=== PATIENT | female | born 1990 | race Caucasian/White ===

== ENCOUNTER → 2018-04-30 15:15 | Outpatient (CLI) | payer OTHER, SELFPAY ==
[2018-04-30 17:35] LABS: Chlamydia Trachomatis by PCR Negative (Negative); Neisserai gonorrhoeae by PCR Negative (Negative); Probe Check PASS; Sample Adequacy Control PASS; Specimen Processing Control PASS
[2018-05-01 01:34] LABS: Rapid Plasmin Reagin (RPR) NONREACTIVE (NONREACTIVE)
[2018-05-01 09:40] LABS: HIV - WCH Non-Reactive (Nonreactive)
[2018-05-04 11:32] LABS: HEPATITIS B SURFACE AG Negative (Negative); Hep C Antibodies <0.1 s/co ratio (0.0-0.9)
[2018-05-06 13:06] LABS: HPV Reflexed? NOT INDICATED
== END ==
PROVIDERS: Family Provider Family Medicine; PCP Family Medicine; Visit Provider Obstetrics & Gynecology
DX: Z12.4 Encounter for screening for malignant neoplasm of cervix (principal); Z11.3 Encounter for screening for infections with a predominantly sexual mode of transmission
CPT/HCPCS: 36415; 86592; 86703; 86803; 87340; 87491; 87591; 88175; G0145

== ENCOUNTER → 2021-06-20 16:27 | Outpatient (CLI) | payer BC, MEDICAID, SELFPAY ==
[2021-06-20 17:08] LABS: Absolute Lymphocyte Count 2.42 X10^3/uL (0.83-4.51); Absolute Neutrophil Count 6.9 X10^3/uL (2.0-7.7); Basophil# 0.03 X10^3/uL; Basophil% 0.3 % (0-1); Eosinophil# 0.18 X10^3/uL; Eosinophils% 1.7 % (0-5); Hematocrit 41.4 % (37-47); Hemoglobin 13.9 g/dL (12.0-15.0); Lymphocyte # 2.42 X10^3/ul (0.83-4.51); Lymphocyte % 23.2 % (19-41); Mean Corp Hgb Conc 33.6 g/dL (32-36); Mean Corpuscular Hgb 28.3 pg (27.0-32.0); Mean Corpuscular Volume 84.3 fL (81-99); Mean Platelet Vol. 9.7 fl (6.2-12.0); Monocyte# 0.76 X10^3/uL; Monocyte% 7.3 % (0-10); NRBC Flagged by Analyzer 0 % (0-5); Neutrophil # 6.94 X10^3/uL (2.7-7.7); Neutrophil % 66.7 % (47-70); Platelet Count 204 K/mm3 (150-450); RBC Distribution Width CV 13.6 % (11.6-14.6); RBC Distribution Width SD 42.3 fl (35.1-43.9); Red Blood Count 4.91 M/mm3 (4.2-5.4); White Blood Count 10.4 K/mm3 (4.4-11.0)
[2021-06-20 17:11] LABS: Color, Urine Yellow (Yellow); Glucose, Dipstick Normal (Normal); Ketone-Dipstick Negative (Negative); Leukocyte Esterase-Dipstick Negative /ul (Negative); Nitrite-Dipstick Negative (Negative); Occult Blood-Urine Negative /ul (Negative); Protein-Dipstick 15 mg/dl (Negative); Urine Bilirubin Dipstick Negative (Negative); Urine Clarity Cloudy (Clear); Urine Urobilinogen Normal (Normal)
[2021-06-20 17:31] LABS: Amphetamine Urine VISTA NEGATIVE (<1000 ng/mL); Barbiturate Urine VISTA NEGATIVE (< 200 ng/mL); Benzodiazepine Urine VISTA NEGATIVE (< 200 ng/mL); Cocaine Urine VISTA NEGATIVE (< 300 ng/mL); Ecstacy Urine VISTA NEGATIVE (< 500 ng/mL); Methadone Urine VISTA NEGATIVE (< 300 ng/mL); PCP Urine VISTA NEGATIVE (< 25 ng/mL); THC Urine VISTA NEGATIVE (< 50 ng/mL); Vista UDS pH Range 5
[2021-06-21 10:12] LABS: HIV - WCH Non-Reactive (Nonreactive); Hepatitis B Surface Antigen Non-Reactive (Nonreactive); Hepatitis C Antibody Non-Reactive (Nonreactive); Rubella IgG Reactive (Nonreactive); Syphilis Antibodies Non-reactive
[2021-06-22 22:07] LABS: Chlamydia By Nucleic Acid AMP Negative (Negative)
[2021-06-22 22:29] LABS: Gonococcus By Nucleic Acid AMP Negative (Negative)
== END ==
PROVIDERS: Visit Provider Obstetrics & Gynecology
DX: Z11.3 Encounter for screening for infections with a predominantly sexual mode of transmission (principal); Z34.81 Encounter for supervision of other normal pregnancy, first trimester
CPT/HCPCS: 36415; 80307; 81002; 85025; 86703; 86762; 86780; 86803; 87086; 87088; 87340; 87491; 87591

== ENCOUNTER → 2021-07-18 13:37 | Outpatient (CLI) | payer MEDICAID, SELFPAY ==
[2021-07-18 14:58] LABS: Glucose Challenge Gest 1H 50g 165 mg/dL (70-140)
== END ==
PROVIDERS: Visit Provider Obstetrics & Gynecology
DX: Z34.82 Encounter for supervision of other normal pregnancy, second trimester (principal)
CPT/HCPCS: 36415; 82950

== ENCOUNTER → 2021-08-22 06:48 | Outpatient (CLI) | payer MEDICAID, SELFPAY ==
[2021-08-22 08:02] LABS: Glucose GTT-Gestation. Fasting 109 mg/dL (<105)
[2021-08-22 09:39] LABS: Glucose GTT-Gestational 1 Hr 199 mg/dL (<190)
[2021-08-22 11:01] LABS: Glucose GTT-Gestational 2 Hr 205 mg/dL (<165)
[2021-08-22 11:02] LABS: Glucose GTT-Gestational 3 Hr 147 L (<145)
== END ==
PROVIDERS: Referring Provider Obstetrics & Gynecology; Visit Provider Obstetrics & Gynecology
DX: O24.912 Unspecified diabetes mellitus in pregnancy, second trimester (principal); Z3A.00 Weeks of gestation of pregnancy not specified
CPT/HCPCS: 36415; 82951; 82952

== ENCOUNTER 2021-09-24 12:21 | Outpatient (CLI) | payer MEDICAID, SELFPAY ==
[2021-09-24 12:37] LABS: Hematocrit 37.5 % (37-47); Hemoglobin 12.5 g/dL (12.0-15.0); Mean Corp Hgb Conc 33.3 g/dL (32-36); Mean Corpuscular Hgb 28.4 pg (27.0-32.0); Mean Corpuscular Volume 85.2 fL (81-99); Mean Platelet Vol. 10.1 fl (6.2-12.0); Platelet Count 157 K/mm3 (150-450); RBC Distribution Width CV 13.8 % (11.6-14.6); RBC Distribution Width SD 43.1 fl (35.1-43.9); White Blood Count 8.6 K/mm3 (4.4-11.0)
== END 2021-09-24 23:59 | disposition home or self-care (01) ==
LOC: WOBLAB 12:22
PROVIDERS: Visit Provider Obstetrics & Gynecology
DX: Z34.82 Encounter for supervision of other normal pregnancy, second trimester (principal)
CPT/HCPCS: 36415; 85027

== ENCOUNTER 2021-11-01 13:50 | Outpatient (CLI) | payer MEDICAID, SELFPAY ==
[2021-11-01 14:24] LABS: Fetal Fibronectin Negative
== END 2021-11-01 23:59 | disposition home or self-care (01) ==
PROVIDERS: Visit Provider Obstetrics & Gynecology
DX: O09.219 Supervision of pregnancy with history of pre-term labor, unspecified trimester (principal)
CPT/HCPCS: 82731

== ENCOUNTER 2021-11-23 16:07 | Outpatient (CLI) | payer MEDICAID, SELFPAY ==
[2021-11-23 16:47] LABS: Hemoglobin A1c 5.5 % (3.8-5.6)
[2021-11-23 17:50] LABS: AST(SGOT) 39 U/L (15-37); Alanine Aminotransfer ALT/SGPT 65 U/L (13-56); Alkaline Phosphatase 84 U/L (45-117); Globulin 4.1 g/dL (2.2-4.2); Protein, Total 7.1 g/dL (6.4-8.2)
[2021-11-26 08:30] LABS: Hepatitis C Antibody Non-Reactive (Nonreactive)
== END 2021-11-23 23:59 | disposition home or self-care (01) ==
LOC: WOBLAB 16:08
PROVIDERS: Visit Provider Obstetrics & Gynecology
DX: Z20.2 Contact with and (suspected) exposure to infections with a predominantly sexual mode of transmission (principal); O24.419 Gestational diabetes mellitus in pregnancy, unspecified control; R94.5 Abnormal results of liver function studies; Z3A.00 Weeks of gestation of pregnancy not specified
CPT/HCPCS: 36415; 80076; 83036; 86803

== ENCOUNTER 2021-12-15 19:20 | Inpatient (IN) | payer MEDICAID, SELFPAY ==
[2021-12-15] VITALS (7 sets, daily range): BP systolic 129–134; BP diastolic 83–87; PULSE 75–91; TEMP 36–36.2; O2SAT 95–97; BMI 38.7
[2021-12-15] MEDS: Betamethasone/Betamethasone 30 MG/5 ML Vial 12 MG IM (20:18)
[2021-12-15 21:15] LABS: Absolute Lymphocyte Count 1.88 X10^3/uL (0.83-4.51); Absolute Neutrophil Count 7.2 X10^3/uL (2.0-7.7); Basophil# 0.03 X10^3/uL; Basophil% 0.3 % (0-1); Hematocrit 38.6 % (37-47); Hemoglobin 13.3 g/dL (12.0-15.0); Lymphocyte # 1.88 X10^3/ul (0.83-4.51); Lymphocyte % 18.8 % (19-41); Mean Corp Hgb Conc 34.5 g/dL (32-36); Mean Corpuscular Hgb 29.4 pg (27.0-32.0); Mean Corpuscular Volume 85.4 fL (81-99); Mean Platelet Vol. 10.5 fl (6.2-12.0); Monocyte# 0.75 X10^3/uL; Monocyte% 7.5 % (0-10); NRBC Flagged by Analyzer 0 % (0-5); Neutrophil # 7.16 X10^3/uL (2.7-7.7); Neutrophil % 71.8 % (47-70); Platelet Count 186 K/mm3 (150-450); RBC Distribution Width CV 13.9 % (11.6-14.6); RBC Distribution Width SD 42.9 fl (35.1-43.9); Red Blood Count 4.52 M/mm3 (4.2-5.4)
[2021-12-15] MEDS: metFORMIN HCl 1,000 MG Tablet 1000 MG PO (22:59)
[2021-12-15 23:10] LABS: Bedside Glucose 84 mg/dL (74-106)
[2021-12-15 23:10] LABS: Bedside Glucose 185 mg/dL (74-106)
[2021-12-15] MEDS: Insulin Glargine-YFGN 100 UNIT/ML Pen 10 UNIT SC (23:19)
[2021-12-16] VITALS (24 sets, daily range): BP systolic 106–133; BP diastolic 31–89; PULSE 77–105; RESP 16–20; TEMP 36.1–37.7; O2SAT 94–97
[2021-12-16 06:16] LABS: Bedside Glucose 123 mg/dL (74-106)
[2021-12-16] MEDS: metFORMIN HCl 1,000 MG Tablet 1000 MG PO (08:55)
--- NOTE | 2021-12-16 10:25 | PCM.HP.BLA ---
History and Physical Date of Admission: 12/15/21 ACOG ANTEPARTUM RECORD - HISTORY AND PHYSICAL (12/16/2021) Name: ERIKA CLARK History of this : This is a 31 year old who presents at 35 wks + 6 (now 36 weeks gestation) days gestation last PM with increasing crouch lightening episodes the past 2-3 days. Also some occasional bright red spotting. She had a prior classical and lives in [place]. PNC also remarkable for polyhydramnios and GDM. OB Physician: Wendy Davenport MD Cecil's Physician: Crystal ...................................................................... : 1990 Age: 31 Address: [address] [place] [address] Phone: H) [phone] (O) [phone] Insurance Carrier: [facility] [id number] Emergency Contact: JEAN CLAUDE CLARK [phone] ...................................................................... Final ELADIO: 01/13/22 By Ultrasound: 9 weeks 3 days PARITY: (G-Total Pregnancies P-Fullterm,Premature,Induced AB,Spont AB, Ectopics, Multiple,Living) ELADIO CONFIRMATION: By LMP: 04/08/21 By First Ultrasound Exam: 07/18/14 Final ELADIO: 01/13/22 OB PROBLEM LIST: Allergic adhesive tape. 2nd trimester COVID19 infection Gestational Diabetes H/O depression/anxiety with past Zoloft use. EPDS today = 19. Declines medication. H/O skin cancer MaterniT 21 drawn today. Carrier screening declined. Prior CLASSICAL C Section Plan repeat C/S at 37 wks. Prior Vertical skin incision for C/S Plan repeat C/S through transverse skin incision Son has CP from Delivery after MVA , 27 week GA Spouse's family hx of hearing loss Tubal reversal x 2 ALLERGIES: Adhesive Tape Generalized rash Adhesive Tape Rash MEDICATIONS: Levemir FlexTouch U-100 Insulin 100 unit/mL (3 mL) subcutaneous pen Inject 10 u qhs metformin ER 1,000 mg 24 hr tablet,extended release 2 tabs po once daily metformin ER 750 mg tablet,extended release 24 hr 2 tabs po daily Metrogel Vaginal 0.75 % 1 applicator per vagina q hs for 5 days 28 mg iron-800 mcg tablet daily promethazine 25 mg tablet 1/2 to 1 po q 6 hrs prn nausea Vitamin D3 50 mcg (2,000 unit) capsule daily Zoloft 100 mg tablet 1 tab po daily SOCIAL HISTORY: Smoking - Never Alcohol Use - RARELY not while Diet - moderate, balanced diet and caffeine < 2 drinks per day Lifestyle - low stress lifestyle and Exercise - active Employer - [employer] Job Description - Illicit Drug Use - denies use of street drugs Sexual Activity - Residence - lives with Place of - [place], [place] Hours Worked - 40 hours per week Spouse-Sig Other Name - Jean Claude Clark Spouse-Sig Other Occupation - [employer], shipping/packing Spouse-Sig Other Phone No - [phone] Children Name(s) - Emily Timmons Landon, Hunter PRIOR DELIVERY HISTORY DEL DATE GEST LAB WT LB WT OZ TYPE ANES LABOR TX 06 Jun 14 37 0 6 3 C-Sec Spinal No 12 Jun 10 37 0 5 6 C-Sec Epidural No 18 Aug 11 38 2 6 11 C-Sec Epidural No Feb 27 27 0 2 6 C-Sec General No ANTEPARTUM FLOW CHART VISIT GE RTC FU F F TX U U DATE WK MD WKS HT PN HR M SS BP ED WT TX GL D EF ST __ ____ ___ __ __ ___ __ __ __ ___ __ __ __ ___ __ 25 Nov 35 + + 130/80 0 223 1+ - 22 Nov 35 SHM 1 36 V + + 120/82 sl 223 1+ ne 16 Nov 34 SHM 2 36 + + 134/78 sl 223 tr - 04 Nov 32 SHM 2 35 V + + 130/76 sl 222 tr - 10 Oct 29 SHM 1 29 ? + de 132/76 0 222 1+ - 0 0 -5 04 Oct 28 SHM 2 28 + + 130/82 0 223 1+ - 03 Oct 15 SHM 4 24 + + 126/74 1+ 221 tr - 08 Sep 10 SHM 4 20 + + 140/82 0 219 tr - 27 Jul 05 JMW 5 14 + US 124/84 0 221 tr - ANTEPARTUM NOTE(S): Dec 14 2021: Dec 11 2021: doing well Dec 05 2021: see blood sugars Nov 23 2021: see note Nov 01 2021: NST, see note Oct 26 2021: cramping, dark urine noted by pt Sep 24 2021: doing well Aug 29 2021: comp u/s today Jul 18 2021: Sono Today, NOB Today,, mat 21 per req w/1hr COMPREHENSIVE ANTEPARTUM NOTE(S): Dec 14 2021: Erkia is here for her NST at 35 w 5 d, for GDM and Polyhydramnios. She states that she is tired. She reports good FM. Occ. mild cramping felt. She denies spotting/LoF, but feels that she may be losing her mucous plug. No edema noted. Recent blood sugars: 12/12/21: FBS-98, 2 h pp dinner- 82, 12/13/2021: FBS - 83, 2 h pp dinner: 99, 12/14/2021: FBS - 97. Blood sugars reported to Dr. Laurie Davenport, n Dec 11 2021: Erika is 35w2d here for PNV. She is doing well. Good FM. Slight edema. Brought blood sugars today. No questions/concerns at this time. MR Dec 11 2021: BS reviewed, 62.5% at target and pt taking twice daily - always fasting. BPP 8/8, however polyhydramnios worsening, moderate, reviewed with pt uncontrolled glucose values and need for further treatment. Again reviewed risk for hypoglycemia, prolonged hospitalization - rx Levemir 10u qhs in interim. Reviewed importance of continuing taking blood sugars particularly fasting blood sugars. Dec 05 2021: Erika is here for visit. She has some blood sugars for today. She is encouraged to have Tdap vaccine today and reviewed reasoning. Reviewed FM, SROM, and labor. Blood sugars for Dr MAC review. LMT Dec 05 2021: Poor glucose surveillance. At this time likely hyperglycemia given polyhydramanios. BPP 8/8 however. Reviewed with pt increased risk for stillbirth, HYPOglycemia, electrolyte issues requiring extended hospitalization as well as developmental risks including limited feeding ability associated with planned 37w delivery and stressed need for glucose monitoring to limit / Nov 23 2021: Erika is here for visit. She relates she needs to talk to the doctor about not really being able to do blood sugars.She attempted 3 days of blood sugars in the middle of October. I encouraged her at the minimum if she could try to do a fasting and at least 1 PP. She relates she will try but will discuss further with Dr MAC. FM, PTL, and SROM reviewed. LMT Nov 23 2021: Erika relates she had a psych eval for a breakdown earlier this week. Her had a relapse for IVDU, left the home and her mother called the meat cooler. CPS has open case due to him relapsing approx 4 months ago also. Pt was overheard saying I wish I could and a naval aircrewman tactical helicopter who overheard her advised psych ED evaluation. She reports she was worked up over the prospect of losing her kids and overwhel Nov 01 2021: Erika is here today for a NST for dec FM, some cramping and pelvic pressure, and concerns about dark brown-yellow thick vaginal discharge starting yesterday and then again this morning. Erika is very concerned, and states that she is not feeling right, and that she is worried that the baby will be born too soon. She is a with an ELADIO of 01/13/2022, current GA is 29 w 4 d.. Erika rep Nov 01 2021: NST AGA, reactive. Scant brown tinged discharge today. Vaginitis NAAT obtained, FFN neg. Pt to observe. Bleeding, PTL, FM precautions reviewed. Oct 26 2021: Erika is here for visit. She is doing well overall but notes dark color to her urine and occ cramping. Urine dip is negative except 1+ protein, Sp gravity of 1.030, Ketones trace. LMT Oct 26 2021: US today AGA, EFW 1401g (65.5th%), ARMANI 16.8cm. PTL, FM precautions. Increase Metformin to 1500mg daily. Recommend dietary monitoring and log with blood sugar log. Sep 24 2021: Erika is here for PNV she is 24w1d. Positive movement states she has had some edema in her right foot/ankle. Blood sugars are copied. Otherwise doing well with no concerns or complaints BR Sep 24 2021: Fasting blood sugars elevated, nonadherence with 1h postprandials however, 2/3 also elevated. Reviewed with pt importance of glucose monitoring and euglycemia, expressed my concern for not only risk of risk including loss, hypoglycemia, neurologic effects, but risk for delayed FLM particularly given plan for repeat C/S at 36-37wga for prior hx classical C/S. I advise plan for C/S at 37+ wga Aug 29 2021: Erika is here for visit. She is doing well overall. Diagnosed with early GDM and has copy of blood sugars for review with Dr MAC. Reviewed and given handout with blood sugar instructions, diet. No need to keep track of FM yet. She is encouraged to start keeping track of any foods that elevate her sugars and avoid those. Discussed importance of adding daily exercise after meals that can Aug 29 2021: Anatomy scan today with limited cerebral, face, diaphragm, heart views, otherwise wnl. Repeat views in 4 weeks. Placenta anterior, reviewed risk for placenta accreta. Discussed GDM diagnosis, reviewed penitentiary increased risk for maternal DM, as well as risk for macrosomia, hypoglycemia with potential neurologic sequelae, electrolyte abnormalities, need for prolonged hospitalization - esta Aug 24 2021: TELEHEALTH DIABETIC TEACHING VISIT, 25 MINUTE DURATION. Erika has been diagnosed with GDM, current GA is 19 w 5 d. She has a glucometer with test strips and her mother, who has diabetes, has taught her how to check her blood sugars. She has been checking her blood sugars for a day or two now, and feels that it is going well and she states that she feels comfortable with this. Erika knows the Jul 18 2021: CBC, OGCT today and reporting feeling much better with more energy. Nausea better. Sono, NOB and PNV today. LIYA Jul 18 2021: Erika is here for her NOB visit at 14 w 3 d, ELADIO of 01/13/2022; she has 4 children at home, all delivered by . Past history updated. She had a tubal after her last C/S, and two tubal reversal procedures. Erika plans to deliver at [facility] by repeat C/S at 37 weeks, D/T surgical incision. She resides with her , Jean Claude, and the children. Both she and Jean Claude are getting ready t Jun 20 2021: Erika is here with her for missed menses appt. She relates LMP 04/08, EDC 01/13/22, 10 weeks 3 days. Makayla had tubal reversal x2 and a polypectomy. Conceived 2 days after her polypectomy in March. was not on any medications for this conception except Vitamin D. Prior Vit D level was 14 and she continues 2000 IU daily. Makayla had a very large work-up RGI. She had a normal pap with REVIEW OF SYSTEMS: GENERAL - Denies fever, or chills SKIN - Denies rash, new skin lesions, or change in moles EYES - Denies blurred vision, or change in visual acuity EARS - Denies ear pain, or difficulty hearing NOSE - Denies nasal congestion, discharge, or bleeding MOUTH - Denies sore throat, or difficulty swallowing NECK - Denies pain or swelling RESPIRATORY - Denies shortness of breath, cough, wheezing CARDIOVASCULAR - Denies palpitations, chest pain, orthopnea, PND, peripheral edema, syncope or claudication GASTROINTESTINAL - Denies nausea, vomiting, diarrhea, constipation, Denies abdominal pain, melena and or bright red blood GENITOURINARY - Denies dysuria, frequency of urination, urgency, or hesitancy MUSCULOSKELETAL - Denies joint or muscle pain, or back pain NEUROLOGICAL - Denies localized numbness, weakness, or tingling PSYCHIATRIC - Denies depression, anxiety, substance abuse or suicide attempts ENDOCRINE - Denies heat or cold intolerance, weight loss or gain, increasing thirst HEMATO-IMMUNOLOGIC - Denies easy bruising, bleeding, oral ulcerations or recurrent infections GENETICS SCREENING: Age 35+ years: No Thalassemia: No Neural Tube Defect: No Down Syndrome: No LINDA-SACHS: No Sickle Cell Disease: No Hemophilia: No Musc. Dystrophy: No Cystic Fibrosis: No-declines screening [facility] Chorea: No Mental Retardation: No Fragile X: No Other genetic: No Other defects: No SABs/still births: No Drugs since LMP: No Comments: son has CP from PTD post MVA INFECTION HISTORY: High risk AIDS: No High risk Hepatitis: No Exposed to TB: No Exposed to Herpes: No Rash/viral illness since LMP: No History of STD: Yes, HSV MENSTRUAL HISTORY: *Menses Regularity: IrregularFrequency: variableMenarche (Age Onset): 11* PAST SUMMARY: PARITY: 1. Total Pregnancies............ 5 2. Full Term Pregnancies........ 3 3. Premature.................... 1 4. Abortions - Induced.......... 0 5. Abortions - Spontaneous...... 1 6. Ectopics..................... 0 7. Multiple Births.............. 0 8. Living Children.............. 4 PAST #1: Date of :.................. 03/14/08 Gestation Weeks:................ 27 Length of labor(hours):......... 0 Sex:............................ M Weight-lbs:............... 2 Weight-oz:................ 6 Type of Delivery:............... C-Sect Type of Anesthesia:............. General Place of Delivery:.............. [place] Treatment of Labor?:.... No Comment: MVA- EMERGENCY C/S PAST #2: Date of :.................. 07/03/10 Gestation Weeks:................ 37 Length of labor(hours):......... 0 Sex:............................ F Weight-lbs:............... 5 Weight-oz:................ 6 Type of Delivery:............... C-Sect Type of Anesthesia:............. Epidural Place of Delivery:.............. [place] Treatment of Labor?:.... No Comment: PAST #3: Date of :.................. 05/09/11 Gestation Weeks:................ 38 Length of labor(hours):......... 2 Sex:............................ M Weight-lbs:............... 6 Weight-oz:................ 11 Type of Delivery:............... C-Sect Type of Anesthesia:............. Epidural Place of Delivery:.............. [place] Treatment of Labor?:.... No Comment: PAST #4: Date of :.................. 06/27/14 Gestation Weeks:................ 37 Length of labor(hours):......... 0 Sex:............................ M Weight-lbs:............... 6 Weight-oz:................ 3 Type of Delivery:............... C-Sect Type of Anesthesia:............. Spinal Place of Delivery:.............. [place] Treatment of Labor?:.... No Comment: PHYSICAL EXAMINATION General Appearence: 31 yo female in no acute distress Vital Signs: AF, VSS Heart: RRR without rubs or gallops Lungs: CTA x 2 Breasts: deferred Abdomen: gravid Pelvis: Cervix: Presentation: cephalic Station: Fetus: Size: AGA Movement: present Heart: present LAB TEST(S) ORDERED SINCE:04/18/21 09/01/2021 MISCELLANEOUS LAB PROCEDURE 08/22/2021 GESTATIONAL GTT 3HR 100G 07/24/2021 [id number] PLUS CORE 07/18/2021 GLUCOSE CHALLENGE GEST 1H 50G 06/22/2021 URINE CULTURE 06/22/2021 CHLAMYDIA/GC MARLENA APTIMA 06/21/2021 RUBELLA IGG 06/21/2021 L509.8000 06/21/2021 HIV - WCH 06/21/2021 HEPATITIS C ANTIBODY 06/21/2021 HEPATITIS B SURFACE ANTIGEN 06/20/2021 URINE DRUG SCREEN (VISTA) 06/20/2021 URINALYSIS, ROUTINE (DIPSTICK) 06/20/2021 T AND S-NO CHARGE W/PNP 06/20/2021 CBC W/DIFF, AUTOMATED 12/16/2021 BEDSIDE GLUCOSE 12/15/2021 TYPE AND SCREEN 12/15/2021 COVID 19 AG RAPID (RN COLLECT) 12/15/2021 CBC W/DIFF, AUTOMATED 12/15/2021 BEDSIDE GLUCOSE 11/26/2021 HEPATITIS C ANTIBODY 11/23/2021 LIVER PROFILE 11/23/2021 HEMOGLOBIN A1C 11/16/2021 MISCELLANEOUS LAB PROCEDURE 2 11/16/2021 MISCELLANEOUS LAB PROCEDURE 11/01/2021 FIBRONECTIN 09/24/2021 CBC-COMPLETE BLOOD CNT NO DIFF == ==== Order Observation Description Value Ref_Range A* Site == ==== BEDSIDE GLUCOSE NOTE FABIAN BEDSIDE GLUCOSE FINGERSTICK GLU 123 mg/dL 74-106 H POCL MANAGEMENT OF PATIENT CARE PER NURSING PROTOCOL BEDSIDE GLUCOSE NOTE FABIAN BEDSIDE GLUCOSE FINGERSTICK GLU 185 mg/dL 74-106 H POCL MANAGEMENT OF PATIENT CARE PER NURSING PROTOCOL COVID 19 AG RAP NOTE FABIAN S [facility]~[address] [place], [address]~ TYPE AND SCRE AB SCREEN GEL NEGATIVE ML CBC W/DIFF, AUT NOTE FABIAN CBC W/DIFF, AUT WBC 10.0 K/mm3 4.4-11.0 ML CBC W/DIFF, AUT RBC 4.52 M/mm3 4.2-5.4 ML CBC W/DIFF, AUT HGB 13.3 g/dL 12.0-15.0 ML CBC W/DIFF, AUT HCT 38.6 37-47 ML CBC W/DIFF, AUT MCV 85.4 fL 81-99 ML CBC W/DIFF, AUT MCH 29.4 pg 27.0-32.0 ML CBC W/DIFF, AUT MCHC 34.5 g/dL 32-36 ML CBC W/DIFF, AUT RDW CV 13.9 11.6-14.6 ML CBC W/DIFF, AUT RDW SD 42.9 fl 35.1-43.9 ML CBC W/DIFF, AUT PLT 186 K/mm3 150-450 ML CBC W/DIFF, AUT MPV 10.5 fl 6.2-12.0 ML CBC W/DIFF, AUT NEUT% 71.8 47-70 H ML CBC W/DIFF, AUT LY% 18.8 19-41 L ML CBC W/DIFF, AUT MONO% 7.5 0-10 ML CBC W/DIFF, AUT EO% 1.0 0-5 ML CBC W/DIFF, AUT BASO% 0.3 0-1 ML CBC W/DIFF, AUT IG% 0.600 0.0-0.9 ML IG% - Immature Granulocytes (promyelocytes, myelocytes and metamyelocytes) > 1% indicates that a LEFT SHIFT is Present. CBC W/DIFF, AUT ABSOLUTE NEUT 7.2 X10 3/uL 2.0-7.7 ML CBC W/DIFF, AUT ABSOLUTE LYMPH 1.88 X10 3/uL 0.83-4.51 ML CBC W/DIFF, AUT NUCLEATED RBC 0 0-5 ML BEDSIDE GLUCOSE NOTE FABIAN BEDSIDE GLUCOSE FINGERSTICK GLU 84 mg/dL 74-106 POCL MANAGEMENT OF PATIENT CARE PER NURSING PROTOCOL HEPATITIS C ANT NOTE FABIAN HEPATITIS C ANT HEPATITIS C AB Non-Reactive Nonreactive ML Non Reactive: < 0.8 Equivocal: >/= 0.8 to < 1.0 Reactive: >/= 1.0 The CDC recommends that a reactive/equivocal HCV antibody result be followed up by the HCV Nucleic Acid Amplification test ([id number]) LIVER PROFILE NOTE FABIAN LIVER PROFILE T PROT 7.1 g/dL 6.4-8.2 ML LIVER PROFILE ALB 3.0 g/dL 3.2-5.0 L ML LIVER PROFILE GLOB 4.1 g/dL 2.2-4.2 ML LIVER PROFILE AST 39 U/L 15-37 H ML LIVER PROFILE ALK P 84 U/L 45-117 ML LIVER PROFILE ALT 65 U/L 13-56 H ML LIVER PROFILE T BILI 0.40 mg/dL 0.20-1.00 ML For patients on eltrombopag therapy, use of Dimension [place] TBIL is not recommended. LIVER PROFILE D BILI 0.10 mg/dL 0.00-0.30 ML HEMOGLOBIN A1C NOTE FABIAN HEMOGLOBIN A1C HGB A1C 5.5 3.8-5.6 ML Normal < 5.7 % Prediabetic 5.7 - 6.4 % Diabetic >or= 6.5 % Please note range changes. FIBRONECT NOTE FABIAN FIBRONECT FFIBRONECTIN Negative ML MISCELLANEOUS L NOTE FABIAN MISCELLANEOUS L MISC LAB TEST 2 ML TEST RESULT LIMITS Genital Mycoplasmas MARLENA, Swab Mycoplasma genitalium MARLENA B, Negative Negative Mycoplasma hominis MARLENA B, Negative Negative Ureaplasma spp MARLENA B, Negative Negative TESTING PERFORMED AT [facility]. ORIGINAL REPORT ON FILE IN LAB CONTAINS ADDITIONAL TEST SITE INFORMATION. MISCELLANEOUS L NOTE FABIAN MISCELLANEOUS L MISC LAB TEST ML TEST RESULT LIMITS NuSwab Vaginitis Plus (VG+) Bacterial Vaginosis, MARLENA Atopobium vaginae Moderate - 1 Score BVAB 2 Low - 0 Score Megasphaera 1 Low - 0 Score Total Score, add three scores Calculate total score by adding the 3 individual bacterial vaginosis (BV) marker scores together. Total score is interpreted as follows: Total score 0-1: Indicates the absence of BV. Total score 2: Indeterminate for BV. Additional clinical data should be evaluated to establish a diagnosis. Total score 3-6: Indicates the presence of BV. This test was developed and its performance characteristics determined by [employer]. It has not been cleared or approved by the Food and Drug Administration. Jenelle albicans, MARLENA A, Negative Negative Jenelle glabrata, MARLENA A, Negative Negative Trich vag by MARLENA Negative Negative Chlamydia trachomatis, MARLENA Negative Negative Neisseria gonorrhoeae, MARLENA Negative Negative TESTING PERFORMED AT [facility]. ORIGINAL REPORT ON FILE IN LAB CONTAINS ADDITIONAL TEST SITE INFORMATION. CBC-COMPLETE BL NOTE FABIAN CBC-COMPLETE BL WBC 8.6 K/mm3 4.4-11.0 ML CBC-COMPLETE BL RBC 4.40 M/mm3 4.2-5.4 ML CBC-COMPLETE BL HGB 12.5 g/dL 12.0-15.0 ML CBC-COMPLETE BL HCT 37.5 37-47 ML CBC-COMPLETE BL MCV 85.2 fL 81-99 ML CBC-COMPLETE BL MCH 28.4 pg 27.0-32.0 ML CBC-COMPLETE BL MCHC 33.3 g/dL 32-36 ML CBC-COMPLETE BL RDW CV 13.8 11.6-14.6 ML CBC-COMPLETE BL RDW SD 43.1 fl 35.1-43.9 ML CBC-COMPLETE BL PLT 157 K/mm3 150-450 ML CBC-COMPLETE BL MPV 10.1 fl 6.2-12.0 ML GESTATIONAL GTT NOTE AFBIAN GESTATIONAL GTT 3HR GTT- GEST. MG/DL H ML FASTING 109 H Col: 08/22/21 0704 GLUCOSE TOLERANCE TEST FOR Reference Interval GESTATIONAL DIABETES Fasting <105 mg/dL 1 hour <190 mg/dl 2 hour <165 mg/dl 3 hour <145 mg/dl 1 HR GLU 199 H Col: 08/22/21 0810 2 HR GLU 205 H Col: 08/22/21 0913 3 HR GLU 147 H Col: 08/22/21 1014 MISCELLANEOUS L NOTE FABIAN MISCELLANEOUS L MISC LAB TEST ML Sent directly to testing facility per ordering physician. GLUCOSE CHALLEN NOTE FABIAN GLUCOSE CHALLEN GLU GEST 50G 1H 165 mg/dL 70-140 H ML [id number] PLUS GESTATION Vargas LC_SEQCA [id number] PLUS FRACTION 4% LC_SEQCA [id number] PLUS GESTATIONAL AGE > OR = 9 Yes LC_SEQCA [id number] PLUS TEST RESULT Negative LC_SEQCA [id number] PLUS DIRECTIONAL DRILL OPERATOR COMMENTS LC_SEQCA This specimen showed an expected representation of chromosome 21, 18 and 13 material. Clinical correlation is suggested. [id number] PLUS APPROVED BY LC_SEQCA Alejandro Kee MD, PhD, Director, [employer] [id number] PLUS TRISOMY 21 (DOWN SYNDROM Negative LC_SEQCA [id number] PLUS TRISOMY 18 (PEPPER SYND Negative LC_SEQCA [id number] PLUS TRISOMY 13 (PATAU SYNDRO Negative LC_SEQCA [id number] PLUS SEX LC_SEQCA Consistent with Female [id number] PLUS NEGATIVE PREDICTIVE VALU Note LC_SEQCA The Negative Predictive Value (NPV) for trisomy 21, 18, and 13 is greater than 99%. The NPV for SCA and ESS cannot be calculated as SCA and ESS are only reported when an abnormality is detected. [id number] PLUS POSITIVE PREDICTIVE VALU N/A LC_SEQCA [id number] PLUS ABOUT THE TEST LC_SEQCA The MaterniT(R) 21 PLUS laboratory-developed test (LDT) analyzes circulating cell-free DNA from a maternal blood sample. The test is indicated for use in women with increased risk for chromosomal aneuploidy. Validation data on twin pregnancies is limited and the ability of this test to detect aneuploidy in a triplet has not yet been validated. [id number] PLUS TEST METHOD LC_SEQCA Circulating cell-free DNA was purified from the plasma component of maternal blood. The extracted DNA was then converted into a genomic DNA library for aneuploidy analysis of chromosomes 21, 18, and 13 via next generation sequencing.[1] Optional findings based on the test order include sex chromosome aneuploidy (SCA)[2], and enhanced sequencing series (ESS)[3], which will only be reported on as an additional finding when an abnormality is detected. SCA testing includes information on X and Y representation, while ESS testing includes deletions in selected regions (22q, 15q, 11q, 8q, 5p, 4p, 1p) and trisomy of chromosomes 16 and 22. [id number] PLUS PERFORMANCE LC_SEQCA The performance characteristics of the MaterniT(R) 21 PLUS laboratory-developed test (LDT) have been determined in a clinical validation study with women at increased risk for chromosomal aneuploidy.[1],[2],[3],[4] [id number] PLUS PERFORMANCE CHARACTERIST Note LC_SEQCA ! Y-Chromosome ( Sex) ! Accuracy: 99.4% ! ! ! ! Region (associated syndrome) ! Est. Sens# ! Est. Spec ! ! ! ! Trisomy 21 (Down Syndrome) ! 99.1% ! 99.9% ! ! ! ! Trisomy 18 (Pepper Syndrome) ! >99.9% ! 99.6% ! ! ! ! Trisomy 13 (Patau Syndrome) ! 91.7% ! 99.7% ! ! ! ! Sex Chromosome Aneuploidies## ! 96.2% ! 99.7% ! ! ! * As reported in [facility] database [email or web address] [[email or web address] [email or web address] [email or web address]/search/ ] # Estimated Sensitivity. Sensitivity estimated across the observed size distribution of each syndrome [per [facility] database nstd37] and across the range of fractions observed in routine clinical NIPT. Actual sensitivity can also be influenced by other factors such as the size of the event, total sequence counts, amplification bias, or sequence bias. ## Vargas gestation only. [id number] PLUS LIMITATIONS OF THE TEST LC_SEQCA While the results of these tests are highly accurate, discordant results, including inaccurate sex prediction, may occur due to placental, maternal, or mosaicism or neoplasm; vanishing twin; prior maternal organ transplant; or other causes. Sex chromosomal aneuploidies are not reportable for known multiple gestations. These tests are screening tests and not diagnostic; they do not replace the accuracy and precision of diagnosis with CVS or amniocentesis. A patient with a positive test result should be referred for genetic counseling and offered invasive diagnosis for confirmation of test results.[5] A negative result does not ensure an unaffected nor does it exclude the possibility of other chromosomal abnormalities or defects which are not a part of these tests. An uninformative result may be reported, the causes of which may include, but are not limited to, insufficient sequencing coverage, noise or artifacts in the region, amplification or sequencing bias, or insufficient fraction. These tests are not intended to identify pregnancies at risk for neural tube defects or ventral wall defects. Testing for whole chromosome abnormalities (including sex chromosomes) and for subchromosomal abnormalities could lead to the potential discovery of both and maternal genomic abnormalities that could have major, minor, or no, clinical significance. Evaluating the significance of a positive or a non-reportable result may involve both invasive testing and additional studies on the mother. Such investigations may lead to a diagnosis of maternal chromosomal or subchromosomal abnormalities, which on occasion may be associated with benign or malignant maternal neoplasms. These tests may not accurately identify triploidy, balanced rearrangements, or the precise location of subchromosomal duplications or deletions; these may be detected by diagnosis with CVS or amniocentesis. The ability to report results may be impacted by maternal BMI, maternal weight, maternal systemic lupus erythematosus (SLE) and/or by certain pharmaceutical agents such as low molecular weight heparin (for example: Lovenox(R), Xaparin(R), Clexane(R) and Fragmin(R)). The results of this testing, including the benefits and limitations, should be discussed with a qualified healthcare provider. management decisions, including termination of the , should not be based on the results of these tests alone. The healthcare provider is responsible for the use of this information in the management of their patient. [id number] PLUS NOTE LC_SEQCA This test was developed and its performance characteristics determined by [facility]. It has not been cleared or approved by the Food and Drug Administration. This laboratory is certified under the Clinical Laboratory Improvement Amendments (CLIA) as qualified to perform high complexity clinical laboratory testing and accredited by the [employer] (CAP). If there is future clinical need for adding MaterniT GENOME testing, this specimen will be available until term. [facility] samples will not be retained beyond 60 days. [facility] patients will have to send a new sample for re-sequencing ([facility] Test Code: 615247). [id number] PLUS REFERENCES LC_SEQCA 1. Yvan YING, et al. Serenity Med. 2012;14(3):296-305. 2. Jordan KAN, et al. Prenat Diag. 2013;33(6):591-597. 3. Drew C, et al. Clin Chem. 2015 Apr;61(4):608-616. 4. Yvan YING, et al. Serenity Med. 2011;13(11):913-920. 5. ACOG/SMFM Joint Committee Opinion No. 545, Aug 2012. [id number] PLUS PDF . LC_SEQCA CHLAMYDIA/GC NA NOTE FABIAN CHLAMYDIA/GC NA CHLAMY,NUC ACID Negative Negative LCI CHLAMYDIA/GC NA GC BY NUC ACID Negative Negative LCI Performed at: =[address] SouthAlie [id number] Pump Installer: Lana Street MD, Phone: [phone] URINE CULTURE NOTE FABIAN HEPATITIS C ANT NOTE FABIAN HEPATITIS C ANT HEPATITIS C AB Non-Reactive Nonreactive ML Non Reactive: < 0.8 Equivocal: >/= 0.8 to < 1.0 Reactive: >/= 1.0 The CDC recommends that a reactive/equivocal HCV antibody result be followed up by the HCV Nucleic Acid Amplification test (745029) HEPATITIS B RAKESH NOTE FABIAN HEPATITIS B RAKESH HEP B SURF AG Non-Reactive Nonreactive ML HIV - [facility] NOTE FABIAN HIV - [facility] HIV Non-Reactive Nonreactive ML L509.8000 NOTE FABIAN L509.8000 SYPHILIS ABS Non-reactive ML RUBELLA IGG NOTE FABIAN RUBELLA IGG RUBELLA IGG Reactive Nonreactive ML Antibody Results Interpretation of Immune Status Non Reactive Presumed Non-Immune Equivocal Equivocal Reactive Presumed Immune PN N [facility]~[address] [place], [address]~ T AND AB SCREEN GEL NEGATIVE ML URINE DRUG SCRE NOTE FABIAN URINE DRUG SCRE VISTA UDS PH 5 ML URINE DRUG SCRE AMPHETAMINES NEGATIVE <1000 ng/mL ML URINE DRUG SCRE BARBITIURATES NEGATIVE < 200 ng/mL ML URINE DRUG SCRE BENZODIAZIPINE NEGATIVE < 200 ng/mL ML URINE DRUG SCRE COCAINE NEGATIVE < 300 ng/mL ML URINE DRUG SCRE ECSTACY NEGATIVE < 500 ng/mL ML URINE DRUG SCRE METHADONE NEGATIVE < 300 ng/mL ML URINE DRUG SCRE OPIATES NEGATIVE < 300 ng/mL ML URINE DRUG SCRE PCP NEGATIVE < 25 ng/mL ML URINE DRUG SCRE THC NEGATIVE < 50 ng/mL ML URINALYSIS, ROU NOTE FABIAN URINALYSIS, ROU COLOR Yellow Yellow ML URINALYSIS, ROU URINE CLARITY Cloudy Clear ML URINALYSIS, ROU GLUCOSE, UR Normal mg/dl Normal ML URINALYSIS, ROU BILIRUBIN URINE Negative mg/dL Negative ML URINALYSIS, ROU KETONE UR Negative mg/dl Negative ML URINALYSIS, ROU SP.GR. DIPSTX 1.030 1.002-1.030 ML URINALYSIS, ROU PH UR 5.0 5.0 - 8.0 ML URINALYSIS, ROU PROT DIPSTX 15 mg/dl Negative A ML URINALYSIS, ROU UROBILI Normal mg/dl Normal ML URINALYSIS, ROU NITRITE Negative Negative ML URINALYSIS, ROU OCCULT BLOOD-UR Negative /ul Negative ML URINALYSIS, ROU LEUK ESTERASE Negative /ul Negative ML CBC W/DIFF, AUT NOTE FABIAN CBC W/DIFF, AUT WBC 10.4 K/mm3 4.4-11.0 ML CBC W/DIFF, AUT RBC 4.91 M/mm3 4.2-5.4 ML CBC W/DIFF, AUT HGB 13.9 g/dL 12.0-15.0 ML CBC W/DIFF, AUT HCT 41.4 37-47 ML CBC W/DIFF, AUT MCV 84.3 fL 81-99 ML CBC W/DIFF, AUT MCH 28.3 pg 27.0-32.0 ML CBC W/DIFF, AUT MCHC 33.6 g/dL 32-36 ML CBC W/DIFF, AUT RDW CV 13.6 11.6-14.6 ML CBC W/DIFF, AUT RDW SD 42.3 fl 35.1-43.9 ML CBC W/DIFF, AUT PLT 204 K/mm3 150-450 ML CBC W/DIFF, AUT MPV 9.7 fl 6.2-12.0 ML CBC W/DIFF, AUT NEUT% 66.7 47-70 ML CBC W/DIFF, AUT LY% 23.2 19-41 ML CBC W/DIFF, AUT MONO% 7.3 0-10 ML CBC W/DIFF, AUT EO% 1.7 0-5 ML CBC W/DIFF, AUT BASO% 0.3 0-1 ML CBC W/DIFF, AUT IG% 0.800 0.0-0.9 ML IG% - Immature Granulocytes (promyelocytes, myelocytes and metamyelocytes) > 1% indicates that a LEFT SHIFT is Present. CBC W/DIFF, AUT ABSOLUTE NEUT 6.9 X10 3/uL 2.0-7.7 ML CBC W/DIFF, AUT ABSOLUTE LYMPH 2.42 X10 3/uL 0.83-4.51 ML CBC W/DIFF, AUT NUCLEATED RBC 0 0-5 ML *Negative results from patients with symptom onset beyond five days should be treated as presumptive and confirmed by a molecular assay if clinically necessary. Negative results should not be used as the sole basis for treatment or for patient management. SARS-CoV-2 Ag Resp Ql IA.rapid SARS-CoV-2 Ag Resp Ql IA.rapid SARS-CoV-2 Ag Resp Ql IA.rapid * This test has not been FDA cleared or approved; the test has been authorized by FDA under an Emergency Use Authorization (EAU) for use by laboratories certified under CLIA that meet the requirements to perform moderate, high, or waived complexity tests. SARS-CoV-2 Ag Resp Ql IA.rapid Normal Reference Range: Negative SARS-CoV-2 (COVID 19) Negative RAPID METHOD Quidel Emilia Analyzer MIGUEL ÁNGEL A POSITIVE Presumptive Lactobacillus sp. [place] Count 80,000-100,000 A POSITIVE == ==== Impression /Plan: 35 wks + 6 days intrauterine with hx of classical now with intermittent lower tearing abdominal pain. Reactive NST. Minimal bleeding now. Steroids for 24 hours with continuous monitoring then will proceed with .
[2021-12-16] MEDS: Betamethasone/Betamethasone 30 MG/5 ML Vial 12 MG IM (11:02)
[2021-12-16 11:16] LABS: Bedside Glucose 136 mg/dL (74-106)
[2021-12-16] MEDS: Lactated Ringers 1,000 ML 150 ML IV (13:54)
[2021-12-16] MEDS: Sodium Citrate/Citric Acid 30 ML UDC PO (16:52)
[2021-12-16] MEDS: Acetaminophen 500 MG Tablet 1000 MG PO ×2 (16:52→22:52)
[2021-12-16 17:00] LABS: Bedside Glucose 125 mg/dL (74-106)
--- NOTE | 2021-12-16 17:57 | OP.PCM_ITS ---
Details Operative Information Date of Procedure: 12/16/21 Pre-Operative Diagnosis: Prior Classical Section, Abdominal Pain Post-Operative Diagnosis: Prior Classical Section, Abdominal Pain Classification: Scheduled Procedure Type: low transverse hot top liner #1: Kenyatta Liu Type of Anesthesia: Spinal (With Duramorph) Anesthesiologist: Dao Javed Antibiotic Given: Ancef 2 grams IV x1 Estimated Blood Loss: 500 cc Fluids Replaced: Crystalloid Findings Description of Procedure: Surgeon: Lit Javed MD, FACOG Procedure: Repeat Low Transverse Cervical Caesarean Section Findings: Viable female infant with Apgars of 7/9 in occiput anterior presentation with clear amniotic fluid and normal three-vessel placenta. Indication: This is a 31-year-old who presents for her fourth at 36 weeks gestation. care has been remarkable for a prior classical C- section. Presented in possible early labor last evening with bleeding and lower abdominal pain. Patient was monitored and given steroids for 24 hours. care also remarkable for polyhydramnios and gestational diabetes. The patient has been counseled regarding the risk and indications of this procedure including the possibility of bleeding infection and injury to surrounding structures such as bowel bladder. All questions were answered. Procedure: Patient was taken to the operating room where after spinal anesthesia was placed, the patient was prepped and draped in usual sterile fashion and a Roman catheter was placed. The abdomen was entered through the patient's prior Pfannenstiel incision and peritoneum was entered bluntly. After developing a bladder flap on the lower uterine segment a low transverse incision was made on the uterus and head was delivered onto the operative field with the assistance of Kiwi vacuum suction due to the head being low in the pelvis; the nose mouth and oropharynx were bulb suctioned. Subsequently a viable female infant was born with Apgars of 7/9. The was noted to cry move all extremities vigorously on the operative field. The umbilical cord was doubly clamped and ligated and infant handed to the nursery personnel who were present for the delivery. Placenta was delivered and noted to be 3 vessels and normal. Uterus was exteriorized and remaining placental tissue was removed. The uterus was then closed in 2 layers first with running locked 0 Vicryl suture followed by a second imbricating layer with 0 Vicryl suture. 0 Vicryl suture was then used in a horizontal mattress interrupted fashion to affect final hemostasis of the uterine incision line. Adhesions were removed with cautery from the left fallopian tube. Normal fallopian tubes and ovaries were visualized and the uterus was returned to the pelvis. Hemostasis was noted and rectus abdominis muscles were reapproximated in the midline with interrupted Number 0 Vicryl suture in a horizontal mattress fashion. Fascia was closed with running Number 1 PDS Strata fix suture. Subcutaneous tissue was irrigated with copious amounts of saline solution and then closed with running 3-0 Vicryl suture in 2 layers. Skin was closed with 4-0 monocryl suture in a running subcuticular fashion. Steri strips and a Mepilex dressing were placed across the incision. The patient tolerated the procedure well and was taken to the recovery room in satisfactory condition. Sponge, needle, and instrument counts were all reportedly correct. EBL was 500 cc. Ancef 2 gms IV was given prior to the procedure. Presentation: Positive for Vertex Amniotic Fluid Description: Clear Placental Delivery Description: Spontaneous Placenta Disposition: [facility] Specimen(s) Sent to Pathology: None Cord Vessel Description: 3 Vessels Cord Entanglement: None Complications Risks of Surgery Discussed w/Patient: Bleeding, Infection and Injury to surrounding structure(s) including bowel and bladder Complications: None
[2021-12-16] MEDS: Cefazolin 2 GM in 0.9% Normal Saline 100 ML IV (18:10)
[2021-12-16] MEDS: Oxytocin 30 units/NS 500 ml 30 UNITS/500 ML IV.SOLN 167 UNITS IV (19:45)
[2021-12-16 20:31] LABS: Bedside Glucose 135 mg/dL (74-106)
[2021-12-16] MEDS: Ketorolac 30 MG/ML Syringe IV (21:05)
[2021-12-16] MEDS: DiphenhydrAMINE 25 MG Capsule PO (21:06)
[2021-12-16] MEDS: Lactated Ringers 1,000 ML 100 ML IV (22:52)
[2021-12-17] VITALS (10 sets, daily range): BP systolic 100–122; BP diastolic 48–82; PULSE 71–93; RESP 14–24; TEMP 36.2–37.2; O2SAT 92–100
[2021-12-17] MEDS: 0.9% Saline Lock 10 ML Syringe IV (02:01)
[2021-12-17] MEDS: Ketorolac 30 MG/ML Syringe IV ×2 (02:06→08:09)
[2021-12-17] MEDS: Cefazolin 1 GM/50 ML BAG IV ×2 (02:08→10:22)
[2021-12-17] MEDS: Acetaminophen 500 MG Tablet 1000 MG PO ×3 (05:35→18:28)
[2021-12-17] MEDS: Enoxaparin 40 MG/0.4 ML Syringe SC (05:36)
[2021-12-17 06:01] LABS: Bedside Glucose 131 mg/dL (74-106)
[2021-12-17 06:49] LABS: Hematocrit 33.8 % (37-47); Hemoglobin 11.2 g/dL (12.0-15.0); Mean Corp Hgb Conc 33.1 g/dL (32-36); Mean Corpuscular Hgb 28.6 pg (27.0-32.0); Mean Corpuscular Volume 86.2 fL (81-99); Mean Platelet Vol. 10.5 fl (6.2-12.0); Platelet Count 148 K/mm3 (150-450); RBC Distribution Width SD 44.3 fl (35.1-43.9); Red Blood Count 3.92 M/mm3 (4.2-5.4); White Blood Count 13.3 K/mm3 (4.4-11.0)
--- NOTE | 2021-12-17 07:20 | NURSING ---
bedside report given to Ana Lilia Francis RN and Huber Gil RN who are assuming care of pt at this time
[2021-12-17] MEDS: Lactated Ringers 1,000 ML 100 ML IV ×2 (07:53→07:57)
--- NOTE | 2021-12-17 08:28 | PCM.PN.OB ---
Subjective Subjective Postop day 1 status post repeat section. Lochia minimal. Pain controlled. Objective Data Objective Data Vital Signs: Vital Signs Temp Pulse Resp BP Pulse Ox 98.1 F 77 14 104/56 L 94 12/17/21 07:47 12/17/21 07:47 12/17/21 07:47 12/17/21 07:47 12/17/21 07:47 Oxygen Flow Rate (L/min) 2 Oxygen Delivery Method Room Air Weight: 102.4 kg Body Mass Index (BMI) 38.7 Intake & Output: Intake and Output for Last 24 Hours 12/15/21 12/16/21 12/17/21 23:59 23:59 23:59 Intake Total 1617.5 / 1617.5 925.01 / 925.01 Output Total 150 / 150 180 / 180 Balance 1467.5 / 1467.5 745.01 / 745.01 Lab / Micro Data Result Diagrams: 12/17/21 06:27 Labs: Laboratory Results - last 24 hr 12/16/21 11:06: POC Glucose 136 H 12/16/21 16:55: POC Glucose 125 H 12/16/21 20:08: POC Glucose 135 H 12/17/21 05:42: POC Glucose 131 H 12/17/21 06:27: WBC 13.3 H, RBC 3.92 L, Hgb 11.2 L, Hct 33.8 L, MCV 86.2, MCH 28.6, MCHC 33.1, RDW Std Deviation 44.3 H, RDW Coeff of Kai 14.0, Plt Count 148 L, MPV 10.5 Micro: Microbiology 12/15/21 21:14 Nasal Secretion SARS-CoV-2 Antigen (Rapid) - Final Physical Exam Const alert, oriented x3 and no apparent distress HEENT normocephalic Head and Scalp: atraumatic Neck full ROM Resp normal respiratory effort Cardio regular rate GI normal to inspection, nondistended, normoactive bowel sounds GI Narrative: Uterus 2 cm below umbilicus. Dressing clean and dry. Skin erythema in area where ioban was. Back/Spine normal ROM Extremity normal to inspection Extremity Narrative: Minimal pedal edema Neuro no focal motor deficits and no sensory deficits noted Psych mental status grossly normal and affect normal Assessment & Plan (1) Delivery by section: PLAN: Postop day 1 status post repeat section. On oxygen overnight, resolved. Encourage ambulation and incentive spirometry. Okay to discharge tonight as long as she no longer requires oxygen. (2) Other acute postprocedural pain:
--- NOTE | 2021-12-17 08:31 | PCM.DC ---
Documented by User: Dr. Liudmila Dangelo DO 12/17/21 08:33 Discharge Instructions Diet Discharge Diet: No restrictions Activity Discharge Activity: Return to Normal Activity and May Shower May resume sexual activity in: 4-6 weeks Weight Bearing Status: Weight bearing as tolerated Lifting Restrictions: No greater than 25 pounds Dressing / Incision Call your doctor if your incision/area has: Continuous Slow Oozing, Sudden Increased Bleeding, Increased Pain/ Swelling, Increased Redness, Foul Smelling Discharge and Swelling at the incision site Call your doctor if you observe: Fever of 101 or Higher, Change in Color, Inability to urinate, Using more than 1 pad per hour, Shortness of breath, Dizziness, Swelling in the ankles, Chest pain and Calf discomfort Remove Dressing in: 1 week Cleanse incision/area with: Soap & Water Follow Up Care Please Follow Up With: Lit Javed MD When: 2-week post operative visit, 6 week Test Results: Test results from this visit will be discussed in further detail at your follow-up appointment, if applicable. Discharge Plan Admission Admit Date/Time: 12/15/21 19:20 Primary Reason for Your Visit: Section Attending Provider: Lit Javed Primary Care Provider: Care Physician,No Primary Discharge Orders/Prescriptions Prescriptions: New oxycodone 5 mg Tablet 5 mg PO Q6H PRN (Reason: pain) 4 Days Qty: 10 RF: 0 Continued Prenatabs FA 1 TABLET tablet 1 tab PO DAILY RF: 0 sertraline 100 mg Tablet 100 mg PO DAILY RF: 0 cholecalciferol (vitamin D3) [Vitamin D3] 50 mcg (2,000 unit) Capsule 100 mcg PO DAILY RF: 0 Discontinued metformin 500 mg Tablet 2,000 mg PO DAILY RF: 0 levomir 10 units OTHER DAILY RF: 0 Referrals / Follow Up: Care Physician,No Primary [Primary Care Provider] - Disposition Disposition (needs filled in before D/C Order can be placed): Home, Self Care Documented by User: Dr. Wendy Davenport MD 12/18/21 09:07 Discharge Instructions Follow Up Care Please Follow Up With: Wendy Abraham MD When: 1-2 weeks for incision check 6 weeks for visit Discharge Plan Admission Admit Date/Time: 12/15/21 19:20 Primary Reason for Your Visit: Section Attending Provider: Lit Javed Primary Care Provider: Care Physician,No Primary Discharge Orders/Prescriptions Prescriptions: New oxycodone 5 mg Tablet 5 mg PO Q6H PRN (Reason: pain) 4 Days Qty: 10 RF: 0 Continued Prenatabs FA 1 TABLET tablet 1 tab PO DAILY RF: 0 sertraline 100 mg Tablet 100 mg PO DAILY RF: 0 cholecalciferol (vitamin D3) [Vitamin D3] 50 mcg (2,000 unit) Capsule 100 mcg PO DAILY RF: 0 Discontinued metformin 500 mg Tablet 2,000 mg PO DAILY RF: 0 levomir 10 units OTHER DAILY RF: 0 Referrals / Follow Up: Care Physician,No Primary [Primary Care Provider] - Disposition Disposition (needs filled in before D/C Order can be placed): Home, Self Care
[2021-12-17] MEDS: Sertraline 100 MG Tablet PO (10:21)
[2021-12-17] MEDS: Senna/Docusate Sodium 1 Tablet PO (10:21)
[2021-12-17] MEDS: Ibuprofen 600 MG Tablet PO ×2 (14:36→20:40)
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
[2021-12-18] MEDS: Acetaminophen 500 MG Tablet 1000 MG PO ×4 (00:55→19:12)
[2021-12-18 02:00] VITALS: BP 124/73; PULSE 84; RESP 16; TEMP 36.3; O2SAT 95
[2021-12-18] MEDS: Ibuprofen 600 MG Tablet PO ×3 (02:42→15:37)
[2021-12-18 08:56] LABS: Bedside Glucose 95 mg/dL (74-106)
[2021-12-18 09:01] VITALS: BP 129/79; PULSE 68; RESP 12; TEMP 36.3; O2SAT 95
--- NOTE | 2021-12-18 09:03 | PCM.PN.OB ---
Subjective Subjective No issues overnight. Feels well. Passing flatus, had a bowel movement. Voiding without difficulty. Pain well controlled. Denies heavy lochia, fever, chills, headache, vision changes, cough, shortness of breath or chest pain. Objective Data Objective Data Vital Signs: Vital Signs Temp Pulse Resp BP Pulse Ox 97.4 F L 68 12 129/79 H 95 12/18/21 09:01 12/18/21 09:01 12/18/21 09:01 12/18/21 09:01 12/18/21 09:01 Oxygen Flow Rate (L/min) 2 Oxygen Delivery Method Room Air Weight: 102.4 kg Body Mass Index (BMI) 38.7 Intake & Output: Intake and Output for Last 24 Hours 12/16/21 12/17/21 12/18/21 23:59 23:59 23:59 Intake Total 1617.5 / 1617.5 1430.01 / 1430.01 Output Total 150 / 150 1030 / 1030 Balance 1467.5 / 1467.5 400.01 / 400.01 Lab / Micro Data Result Diagrams: 12/17/21 06:27 Labs: Laboratory Results - last 24 hr 12/18/21 08:49: POC Glucose 95 Micro: Microbiology 12/15/21 21:14 Nasal Secretion SARS-CoV-2 Antigen (Rapid) - Final Physical Exam Const alert, oriented x3 and no apparent distress Resp normal respiratory effort, normal air movement and clear to auscultation bilaterally Cardio regular rate, regular rhythm, S1 normal heart sound and S2 normal heart sound GI normal to inspection, nondistended, normoactive bowel sounds, soft to palpation, non-tender and non-distended GI Narrative: incisional dressing c/d/i Manual OB Exam: other lochia scant Uterus Palpation: uterus fundus firm Extremity no calf tenderness Assessment & Plan (1) Delivery by section: PLAN: Routine postop care A positive Case management consultation Fasting glucose 95mg/dl this am Anticipate d/c home later today following infant testing
[2021-12-18] MEDS: Senna/Docusate Sodium 1 Tablet PO (10:44)
[2021-12-18] MEDS: Enoxaparin 40 MG/0.4 ML Syringe SC (10:44)
[2021-12-18] MEDS: Sertraline 100 MG Tablet PO (10:44)
[2021-12-18 15:33] VITALS: BP 140/81; PULSE 89; RESP 16; TEMP 36.2; O2SAT 95
[2021-12-18] MEDS: oxyCODONE 5 MG Tablet PO (15:38)
[2021-12-18 21:21] VITALS: BP 143/72; PULSE 91; RESP 16; TEMP 36.1; O2SAT 95
--- NOTE | 2021-12-21 14:15 | CASEMGMT ---
Social Work Labor and Delivery Due to children service being otherwise involved with the family, this underwriter mortgage loan placed call to [facility], . Message left for Marci Murray regarding 's delivery, and no identified concerns during delivery admission. Provided this underwriter mortgage loan's name and number to call should Marci need clarification. No other services requested or indicated. -AMANDA Castro, TOOL DIE [employer]KER
--- NOTE | 2021-12-24 09:25 | PCM.DC.SUM ---
Providers Date of Admission: 12/15/21 Primary Care Physician: Leslie Primary Care Phys Reason For Visit: C SECTION Diagnosis Discharge Diagnosis (1) Delivery by section: Status: Acute Plan: To call with fever greater than 101 ?F, inability to urinate or have a bowel movement, or increasing redness about her incision. Follow-up in the office in 2 weeks in 6 weeks. Medications at Discharge Home Medications Prenatabs FA 1 tab PO DAILY 11/18/13 cholecalciferol (vitamin D3) [Vitamin D3] 100 mcg PO DAILY 12/15/21 sertraline 100 mg PO DAILY 12/15/21 oxycodone 5 mg PO Q6H PRN 4 Days #10 tab 12/17/21 Weight / BMI Weight Weight: 225 lb 12.054 oz Body Mass Index (BMI) 38.7 ABG / Lab / Microbiology Data Result Diagrams: 12/17/21 06:27 Microbiology: Microbiology 12/15/21 21:14 Nasal Secretion SARS-CoV-2 Antigen (Rapid) - Final D/C Instructions Discharge Diet: No restrictions May resume sexual activity in: 4-6 weeks Weight Bearing Status: Weight bearing as tolerated Call your doctor if your incision/area has: Continuous Slow Oozing, Sudden Increased Bleeding, Increased Pain/ Swelling, Increased Redness, Foul Smelling Discharge and Swelling at the incision site Call your doctor if you observe: Fever of 101 or Higher, Change in Color, Inability to urinate, Using more than 1 pad per hour, Shortness of breath, Dizziness, Swelling in the ankles, Chest pain and Calf discomfort Cleanse incision/area with: Soap & Water Please Follow Up With: Wendy Abraham MD When: 1-2 weeks for incision check 6 weeks for visit Meaningful Use Info Meaningful Use Diagnoses (Choose all that apply): None applicable Discharge Plan Admission Admit Date/Time: 12/15/21 19:20 Primary Reason for Your Visit: Section Attending Provider: Lit Javed Primary Care Provider: Care Physician,No Primary Instructions Forms: Information Patient Instructions: Section () Discharge Orders/Prescriptions Prescriptions: New oxycodone 5 mg Tablet 5 mg PO Q6H PRN (Reason: pain) 4 Days Qty: 10 RF: 0 Continued Prenatabs FA 1 TABLET tablet 1 tab PO DAILY RF: 0 sertraline 100 mg Tablet 100 mg PO DAILY RF: 0 cholecalciferol (vitamin D3) [Vitamin D3] 50 mcg (2,000 unit) Capsule 100 mcg PO DAILY RF: 0 Discontinued metformin 500 mg Tablet 2,000 mg PO DAILY RF: 0 levomir 10 units OTHER DAILY RF: 0 Referrals / Follow Up: Care Physician,No Primary [Primary Care Provider] - Disposition Disposition (needs filled in before D/C Order can be placed): Home, Self Care
== END 2021-12-18 21:30 | disposition home or self-care (01) | DRG 539 ==
LOC: WP 12-16 18:26 → WPOUT 12-17 14:33
PROVIDERS: Admitting Provider Obstetrics & Gynecology; Visit Provider Obstetrics & Gynecology
DX: O60.14X0 Preterm labor third trimester with preterm delivery third trimester, not applicable or unspecified (principal); O24.429 Gestational diabetes mellitus in childbirth, unspecified control; O34.212 Maternal care for vertical scar from previous cesarean delivery; R10.9 Unspecified abdominal pain; Z37.0 Single live birth; Z86.16 Personal history of COVID-19; Z3A.36 36 weeks gestation of pregnancy; O40.3XX0 Polyhydramnios, third trimester, not applicable or unspecified
CPT/HCPCS: 59025; 59050; 82962; 85025; 85027; 86850; 86900; 86901; 87426; 99218; J7120; A4216; G0378; J0702; J2405

== ENCOUNTER → 2022-01-29 | Outpatient (CLI) | payer MEDICAID, SELFPAY ==
[2022-02-04 16:32] LABS: HPV APTIMA, High Risk Negative (Negative)
== END | disposition home or self-care (01) ==
LOC: LABSPEC 01-30 10:09
PROVIDERS: Visit Provider Obstetrics & Gynecology
DX: Z12.4 Encounter for screening for malignant neoplasm of cervix (principal)
CPT/HCPCS: 87624; 88175; G0145